=== PATIENT | female | born 1940 | race Caucasian/White ===

== ENCOUNTER → 2019-08-20 | Outpatient (CLI) | payer MEDICARE, OTHER ==
[2019-08-21 00:54] LABS: Hemoglobin A1C 5.6 % (4.0-6.0)
== END | disposition home or self-care (01) ==
LOC: LABWHC1 15:25
PROVIDERS: ATTEND Nurse Practitioner
DX: E11.9 Type 2 diabetes mellitus without complications (principal)
CPT/HCPCS: 36415; 83036

== ENCOUNTER → 2019-08-20 | Outpatient (CLI) | payer MEDICARE, OTHER ==
[2019-08-20 16:13] LABS: HGB 14.4 gm/dL (11.4-16.0); MCH 29.8 pg (25.0-35.0); MCHC 32.8 g/dL (31.0-37.0); MCV 90.9 fL (80.0-100.0); Mean Platelet Volume 7.5; Platelet Count 198 k/uL (150-450); RBC 4.84 m/uL (3.80-5.40); RDW 13.7 % (11.5-15.5); WBC 7.9 k/uL (3.8-10.6)
[2019-08-20 16:22] LABS: INR 0.9 (<1.2); Partial Thromboplastin Time 23.5 sec (22.0-30.0); Prothrombin Time 9.5 sec (9.0-12.0)
[2019-08-20 16:24] LABS: Appearance,Urine Clear (Clear); Bacteria,Urine Many /hpf; Bilirubin,Urine Negative (Negative); Blood,Urine Negative (Negative); Color,Urine Light Yellow; Glucose,Urine (UA) Negative (Negative); Ketones,Urine Negative (Negative); Leukocyte Esterase,Urine Small (Negative); Nitrite,Urine Negative (Negative); PH, Urine 5.5 (5.0-8.0); Protein,Urine Negative (Negative); Specific Gravity,Urine 1.006 (1.001-1.035); Squamous Epithelial Cell,Urine <1 /hpf (0-4); Urobilinogen,Urine <2.0 mg/dL (<2.0); WBC,Urine 8 /hpf (0-5)
[2019-08-20 16:30] LABS: Albumin 4.2 g/dL (3.5-5.0); Calcium 9.5 mg/dL (8.4-10.2); Potassium 4.6 mmol/L (3.5-5.1); Total Bilirubin 0.4 mg/dL (0.2-1.3); Total Protein 7.5 g/dL (6.3-8.2)
== END | disposition home or self-care (01) ==
LOC: LABPAT 15:21
PROVIDERS: ATTEND Orthopaedic Surgery Sports Medicine
DX: Z01.812 Encounter for preprocedural laboratory examination (principal); M17.11 Unilateral primary osteoarthritis, right knee
CPT/HCPCS: 80053; 81001; 85027; 85610; 85730; 87070

== ENCOUNTER 2019-08-26 10:49 | Day surgery (SDC) | payer MEDICARE, OTHER ==
[~2019-08-26 10:49] MED LIST: ACETAMINOPHEN TAB 500 MG TAB PO ONE; DEXAMETHASONE SOD PHOSPHATE 10 MG/ML 1 ML VIAL IV ONE; GABAPENTIN 300 MG CAP PO ONE; HYDROmorphone 0.5 MG/0.5 ML SYRINGE IVP PRN; LIDOCAINE 1% 20 ML VIAL (10MG/ML) FOR IV START INTRADERMA PRN; MELOXICAM 7.5 MG TAB PO ONE; MIDAZOLAM 2 MG/2 ML VIAL IV PRN; ONDANSETRON 4 MG/2 ML VIAL IVP ONE; ROPIVACAINE 246.25 MG, EPINEPHrine 0.5 MG, KETOROLAC 30 MG, cloNIDine HCL/PF 80 MCG, WA... MISCELLANE ONE; SCOPOLAMINE 1.5MG/72HR PATCH TRANSDERM ONE; TRANEXAMIC ACID 1,000 MG in SODIUM CHLORIDE 0.9% 100 ML IVPB ONE
[2019-08-26] MEDS: LACTATED RINGERS 1,000 ML IV SCH ×3 (11:26→15:16)
[2019-08-26 11:29] LABS: Glucose,Whole Blood 121 mg/dL (75-99)
[2019-08-26] MEDS ORDERED: TRANEXAMIC ACID 1,000 MG/10 ML VIAL ONE (12:40)
[2019-08-26] MEDS ORDERED: PROPOFOL 10 MG/ML 20 ML VIAL IV ONE (12:40)
[2019-08-26] MEDS ORDERED: SODIUM CHLORIDE 0.9% 100 ML BAG ONE (12:40)
[2019-08-26] MEDS ORDERED: MIDAZOLAM 2 MG/2 ML VIAL ONE (12:40)
[2019-08-26] MEDS ORDERED: KETAMINE 10 MG/ML 20 ML VIAL ONE (12:40)
[2019-08-26] MEDS ORDERED: fentaNYL (PF) 50 MCG/ML 2 ML AMP ONE (12:40)
[2019-08-26] MEDS ORDERED: MORPHINE SULFATE (PF) 0.3 MG/0.3 ML SYR ONE (12:40)
[2019-08-26] MEDS ORDERED: ONDANSETRON 4 MG/2 ML VIAL ONE (12:40)
[2019-08-26] MEDS ORDERED: ceFAZolin 3,000 MG in SODIUM CHLORIDE 0.9% IRRIGATIO 3,000 ML IRRIGATION ONE (12:45)
[2019-08-26] MEDS ORDERED: BISACODYL 10 MG SUPP RECTAL PRN (12:48)
[2019-08-26] MEDS ORDERED: traMADol 50 MG TAB PO PRN (12:48)
[2019-08-26] MEDS ORDERED: TEMAZEPAM 15 MG CAP PO PRN (12:48)
[2019-08-26] MEDS ORDERED: ONDANSETRON 4 MG/2 ML VIAL IVP PRN (12:48)
[2019-08-26] MEDS ORDERED: NALOXONE 0.4 MG/ML 1 ML VIAL IV PRN ×2 (12:48→15:26)
[2019-08-26] MEDS ORDERED: HYDROcodone/APAP 5-325MG 1 EACH TAB PO PRN (12:48)
[2019-08-26] MEDS ORDERED: HYDROmorphone 0.5 MG/0.5 ML SYRINGE IVP PRN ×4 (12:48→15:26)
[2019-08-26] MEDS ORDERED: HYDROcodone/APAP 10-325MG 1 EACH TAB PO PRN (12:48)
[2019-08-26] MEDS ORDERED: ACETAMINOPHEN TAB 325 MG TAB PO PRN (12:48)
[2019-08-26] MEDS ORDERED: DIAZEPAM 5 MG TAB PO PRN (12:48)
[2019-08-26] MEDS ORDERED: NA PHOS,M-B/NA PHOS,DI-BA 133 ML ENEMA RECTAL PRN (12:48)
[2019-08-26] MEDS ORDERED: MAGNESIUM HYDROXIDE 2,400 MG/10 ML CUP PO PRN (12:48)
[2019-08-26] MEDS ORDERED: LACTATED RINGERS 1,000 ML IV ONE (13:24)
[2019-08-26] MEDS ORDERED: diphenhydrAMINE 50 MG/ML 1 ML VIAL IVP ONE (14:44)
[2019-08-26 15:01] LABS: Glucose,Whole Blood 178 mg/dL (75-99)
[2019-08-26] MEDS ORDERED: PROMETHAZINE INJ 25 MG/ML 1 ML VIAL IVPB ONE (15:03)
--- NOTE | 2019-08-26 15:03 | OP ---
OPERATIVE REPORT DATE OF PROCEDURE: 08/26/2019 SURGEON: Lui Hubbard MD RECYCLE WORKER: Chai PEDRAZA. PREOPERATIVE DIAGNOSIS: Right knee osteoarthrosis. POSTOPERATIVE DIAGNOSIS: Right knee osteoarthrosis. OPERATION: Right total knee arthroplasty. ANESTHESIA: Spinal with sedation. ESTIMATED BLOOD LOSS: 100 mL. TOURNIQUET TIME: 47 minutes at 250 mmHg. COMPLICATIONS: None apparent. DRAINS: None. DISPOSITION: Postanesthesia care unit. INDICATIONS: Ronna is a very pleasant 78-year-old female with longstanding history of right knee pain. History and physical examination are consistent with advanced right knee osteoarthrosis. She has been through significant nonoperative management up to this point. Further treatment options were discussed and she has decided to go for the right total knee arthroplasty. The risks of procedure were discussed with her in detail. These risks include, but are not limited to, risk of infection, nerve damage, bleeding, pain, and a small risk of deep vein thrombosis which could lead to fatal pulmonary embolism. There is also risk of loosening the implant which could require revision operation. The patient understands these risks. All of her questions were answered to her satisfaction. Appropriate informed consent was obtained. DESCRIPTION OF PROCEDURE: Patient identified in the preoperative holding area. Surgical sites marked by both the patient and myself. She was given 2 g of Ancef IV for prophylactic purposes. She was then transferred to the operative suite. She was placed supine on the operative table. Spinal anesthetic was then administered and dosed per the Anesthesia Department without apparent complication. Examination under anesthesia was then performed. The patient was 5 to 10 degrees shy of full extension. She had 95 degrees of flexion in the medial collateral ligament and lateral collateral ligament. Posterior cruciate ligaments were stable. Tourniquet was then placed high on the right upper thigh, well-padded in preparation for surgery. The patient's right lower extremity was than prepped and draped in usual sterile fashion. Standard surgical pause undertaken to ensure that we were operating on the correct site and that appropriate preoperative antibiotics have been given. All staff in the room were in agreement. We proceeded. The outlines of the patellar were marked with surgical pen. A planned 12 cm vertical incision centered over the patella was marked with surgical pen. Leg was then exsanguinated with an Esmarch dressing. The knee was then flexed and tourniquet was inflated to 250 mmHg. The total tourniquet time for the procedure was 47 minutes. Incision was then made with a 10 blade scalpel. Dissection carried down sharply to overlying fascia. Great care was taken to minimize the skin flaps. The knee was then exposed using a standard medial parapatellar approach. A small cuff of quadriceps tendon was then left for suturing. She was in a bit of varus preoperatively. A standard medial release was then made. Superficial medial collateral ligament dissected off the bone around the posterior aspect of the proximal tibia. The medial meniscus was then excised as well. The lateral meniscus was also released anteriorly. The leg was then externally rotated. The patella was everted. The knee was flexed, the retractor was then placed to protect the collateral ligaments. I then proceeded to remove the infrapatellar fat pad. This was excised sharply, tangentially with the fibers of the patellar tendon. I then proceeded to remove peripheral osteophytes. This was done with a rongeur. I then proceeded with the distal femoral resection. She did have near full extension. A planned 9 mm resection was then done. The femoral canal was then entered in midline of the femur approximately 10 mm anterior to the origin of the posterior cruciate ligament. The steven was then advanced down the center of the femur and placed intramedullary. Based on preoperative radiographs, the angle between the anatomic and mechanical axis of the femur was approximately 4-5 degrees. The valgus angle of the distal femoral cutting guide was then set at 5 degrees for the right knee. The distal femoral cutting guide was then advanced over the intramedullary steven. This was seated firmly against the femur. I then as mentioned planned to take 9 mm off the distal femur. The cutting block was then secured onto the femur with pins. The jig was removed. The distal femoral cut was made through the slot of the block. The pins were then removed, this femoral cutting block was removed. The accuracy of the distal femoral cuts was checked with 2 flat bars. I then proceed to femoral sizing. Posterior referencing sizing guide was held firmly against the resected distal surface of the femur. Posterior condyles were resting on the posterior plane of the guide. Sizing stylus was then placed onto the anterior femur. The size was measured to a size 4. I then assessed for femoral rotation. The plan was for 3 degrees of external rotation. Three degrees of external rotation was placed onto the jig. These holes were then marked. I then confirmed the rotation by 3 separate methods. This was done using epicondylar axis as well as Whitesides line and posterior referencing. It was deemed that the external rotation was proper. I then went forward with placing the femoral cutting block. This was placed over the previously placed pin holes. The [place] wing was then placed on the anterior slots to ensure that we would not notch the anterior femur with the anterior femoral cut. I then proceed with the anterior femoral cut. This was flush with the anterior cortex of the femur. Posterior cuts were then made followed by the anterior chamfer cut, then the posterior chamfer cut. The cutting block was then removed. Throughout the resection, the collateral ligaments were protected with retractors. I then placed a trial size 4 femur. It fit slightly wide mediolateral but the narrow fit very nicely and it fit flush with the distal end of the femur. The drill holes were then made. I then proceeded with the tibial cut. I planned for cruciate retaining knee. The guide was placed and set for varus valgus and for slope. The height was set for approximate 2 mm resection from the medial tibial plateau which was the lower side. I was happy with the alignment and the amount of resection. The cutting block was then pinned to the proximal tibia. The alignment steven was removed and the proximal tibia was resected with a reciprocating saw. Again this was done with retractors protecting the collateral ligaments as well as the posterior cruciate ligament. I then proceeded to evaluate the flexion and extension gaps. A 10 mm block was then placed. The flexion-extension gaps were equal. I then proceeded with the resection of the posterior osteophytes. She had very extensive posterior osteophytes. This is done using a curved osteotome. This resected the posterior osteophytes and posterior capsule stripping was also done off the posterior aspect of the femur at this time. The osteophytes were then removed. I then proceeded to resection of patella. The thickness of patella was measured using the caliper. The thickness was 22 mm. The thickness of the anticipated patellar dome was then taken into account. The resection was then performed and confirmed to be equal in 4 quadrants using a caliper. Approximately 14 mm of bone remained after the resection. A 29 x 8 standard patellar trial was then placed. The holes were drilled and the trial was then placed. I then proceeded with sizing the tibial plate. A size 3 tibial plate fit very nicely. I then placed the trial femur the tibial tray and patellar button. A 9 mm trial tibial insert was also placed. The components fit very nicely. She had full extension and flexion. The extension and flexion gaps were equal and stable to both varus and valgus stress. The patella tracked appropriately. The tibial tray rotation was then marked with a Bovie. This was externally rotated properly. I then proceed with tibial preparation. I first drilled the femoral holes and removed femoral component. The tibial tray was then set for proper external rotation as well as mediolateral placement onto the tibia. It was then pinned into place. I then proceed with punching the keel. I then decided to proceed with cementing of all of her components. The knee was thoroughly irrigated with sterile saline solution via pulse lavage. The lateral geniculate artery was identified and cauterized. All blood was removed from the bone of the tibia, femur, and patella with pulse lavaged. I then proceeded with cementing. Two packs of antibiotic bone cement prepared on the back table by the auto electrical technician. I then proceed with cementing the tibia first. The cement was impacted in the keel as well as deeply seated in the bone. A second coat of cement was then placed. The tibia was then impacted into place. Excess cement was removed with Nelly's and Joker's. I then proceed with cementing the femoral component. The femoral component was also cemented using standard technique. Excess cement was removed. A 10 mm trial insert was then placed into the knee. He is brought in full extension with a constant axial load placed until the cement had hardened. The patellar component was then cemented. This held firmly with a compressive device until the cement had dried. When the cement had dried, the knee was taken out of extension. All excess cement was removed from around the prosthesis. I then trialed the knee with a 9 mm insert. Flexion and extension gaps were appropriate. The knee was stable. I decided to go for the 9 mm cross-linked cruciate-retaining tibial insert. Polyethylene was then placed onto the tibial tray and locked into place. The knee was then reduced. The knee was again further irrigated with sterile saline solution with antibiotic added. The tourniquet was then deflated. The total tourniquet time for the procedure was 47 minutes at 250 mmHg. Final components were a [employer] Oxinium size 4 narrow cruciate-retaining femoral component, a size 3 tibial tray, a 9 mm cruciate-retaining polyethylene insert and a 29 x 8 patella. I then proceeded with closure. Again, the knee was thoroughly irrigated. The quadriceps tendon and the medial retinaculum were reapproximated with a #2 Ethibond suture. The extensor mechanism was then closed with a running #2 Quill suture. Subcutaneous tissues were closed with 2-0 Vicryl interrupted suture. The skin was closed with a running 3-0 Quill suture. Dermabond was applied to the incision. Sterile compressive dressing was then applied. All sponge and needle counts were deemed correct prior to closure. The patient tolerated the procedure without apparent complication. She was transferred to recovery room in stable condition. MMODL / IJN: [id number] /
--- NOTE | 2019-08-26 15:17 | XR ---
EXAMINATION TYPE: XR knee limited RT DATE OF EXAM: 08/26/2019 COMPARISON: None HISTORY: Postop knee replacement TECHNIQUE: 2 view right knee FINDINGS: Tibial and femoral components of in place. Soft tissue postsurgical changes are evident. No acute fractures or dislocations are evident. IMPRESSION: 1. No acute fracture post knee replacement
[2019-08-26] MEDS ORDERED: NALBUPHINE 10 MG/ML (1 ML AMP) IV PRN (15:26)
[2019-08-26 16:44] VITALS: BMI 35.9
[2019-08-26 17:26] LABS: Glucose,Whole Blood 196 mg/dL (75-99)
[2019-08-26] MEDS: INSULIN ASPART (NovoLOG) 100 UNIT/ML VIAL SQ SCH ×2 (17:44→20:22)
--- NOTE | 2019-08-26 19:01 | P.CONS ---
History of Present Illness - Reason for Consult Consult date: 08/26/19 Medical management Requesting physician: Lui Hubbard - Chief Complaint Right knee surgery - History of Present Illness Consultation: This is a pleasant [address] Chan. Today underwent right total knee arthroplasty per Dr. Lui Hubbard. Postprocedure patient is controlled. Slight nauseous present. No vomiting. No chest pain no shortness breath. Propped up in bed. Chronic stable medical conditions include diabetes, hypertension, hyperlipidemia, osteoarthritis status post of left hip and knee. Has obstructive sleep apnea and hypothyroid. Review of systems: GEN.: Tired EYES: None HEENT: None NECK: None RESPIRATORY: None CARDIOVASCULAR: None GASTROINTESTINAL: None GENITOURINARY: None MUSCULOSKELETAL: Joint pains LYMPHATICS: None HEMATOLOGICAL: None PSYCHIATRY: None NEUROLOGICAL: None Social history: . Does not smoke or drink alcohol. Physical examination: VITAL SIGNS: 97.2, 49, 16, 128/72, 95% on 3 L GENERAL: BMI 35.8, propped up in bed, awake. EYES: Pupils equal. Conjunctiva normal. HEENT: External appearance of nose and ears normal, oral cavity grossly normal. NECK: JVD not raised; masses not palpable. HEART: First and second heart sounds are normal; no edema. LUNGS: Respiratory rate normal; clear to auscultation. ABDOMEN: Soft, nontender, liver spleen not palpable, no masses palpable. PSYCH: Alert and oriented x3; mood and affect normal. NEUROLOGICAL: Cranial nerves grossly intact; no facial asymmetry, power and sensation grossly intact. LYMPHATICS: No lymph nodes palpable in the axilla and neck MUSCULOSKELETAL: Dressing over the right knee, evidence of OA especially in the hands INVESTIGATIONS, reviewed in the clinical context: Labs from 08/20/2019 include- White count 7.9 hemoglobin 14.4 platelets 198 bun 22 crit 1.25 Assessment: Right total knee arthroplasty -Primary osteoarthritis -Obesity BMI 35.8 -Diabetes mellitus type 2 on oral hypoglycemic -Hyperlipidemia -Essential hypertension -Obstructive sleep apnea uses CPAP Plan: Home medications resumed. Accu-Cheks will be followed. Patient is on aspirin 325 mg twice a day for DT prophylaxis Dr. Alexander. Patient on nausea medication. Care was discussed with the patient. Questions were answered. Thank you Dr. Hubbard Past Medical History Past Medical History: Diabetes Mellitus, Hyperlipidemia, Hypertension, Osteoarthritis (OA), Sleep Apnea/CPAP/BIPAP, Thyroid Disorder History of Any Multi-Drug Resistant Organisms: None Reported Past Surgical History: Breast Surgery, Orthopedic Surgery Additional Past Surgical History / Comment(s): miroslava breast bx, rt knee arthroscopy, partial thyroidectomy Past Anesthesia/Blood Transfusion Reactions: Postoperative Nausea & Vomiting (PONV) Past Psychological History: No Psychological Hx Reported Smoking Status: Never smoker Past Alcohol Use History: None Reported Past Drug Use History: None Reported - Past Family History Mother Family Medical History: Deep Vein Thrombosis (DVT) Medications and Allergies Home Medications Medication Instructions Recorded Confirmed Type Acetaminophen [Tylenol] 325 mg PO Q4H PRN 08/21/19 08/26/19 History Aspirin [Adult Low Dose Aspirin EC] 81 mg PO DAILY 08/21/19 08/26/19 History Bisoprolol-Hctz 5-6.25 mg [Ziac 1 tab PO QAM 08/21/19 08/26/19 History 5-6.25 MG] Calcium Carbonate/Vitamin D3 1 each PO DAILY 08/21/19 08/26/19 History [Calcium 500-Vit D3 600 Tablet] Furosemide [Lasix] 20 mg PO Q48H 08/21/19 08/26/19 History Losartan Potassium 100 mg PO QAM 08/21/19 08/26/19 History Multivit-Min/Iron/Folic/Lutein 1 each PO DAILY 08/21/19 08/26/19 History [Centrum Silver Women Tablet] Simvastatin 40 mg PO DAILY 08/21/19 08/26/19 History glipiZIDE [Glucotrol] 2.5 mg PO AC-BRKFST 08/21/19 08/26/19 History Allergies Allergy/AdvReac Type Severity Reaction Status Date / Time nickel Allergy Rash/Hives/ Verified 08/26/19 11:06 itching Physical Exam Vitals: Vital Signs Temp Pulse Pulse Resp BP Pulse Ox 08/26/19 18:27 48 L 112/67 08/26/19 17:41 14 96 08/26/19 17:30 47 L 109/68 08/26/19 17:15 45 L 115/68 93 L 08/26/19 17:00 48 L 114/66 93 L 08/26/19 16:45 50 L 126/72 92 L 08/26/19 16:30 51 L 114/71 96 08/26/19 16:15 48 L 124/74 95 10/23/19 16:00 50 L 131/75 95 08/26/19 15:45 48 L 129/74 94 L 08/26/19 15:30 97.2 F L 49 L 128/72 95 08/26/19 15:26 15 96 08/26/19 15:22 50 L 16 111/60 94 L 08/26/19 15:09 51 L 16 117/60 94 L 08/26/19 14:54 54 L 16 119/63 97 08/26/19 14:39 97 F L 57 L 14 140/58 94 L 08/26/19 11:10 98.8 F 63 16 161/76 94 L Intake and Output 08/26/19 08/26/19 08/26/19 06:59 14:59 22:59 Intake Total 2050 400 Output Total 100 Balance 1950 400 Intake: IV 2050 400 Output: Estimated Blood Loss 100 Results Labs: Abnormal Lab Results - Last 24 Hours (Table) 08/26/19 08/26/19 08/26/19 Range/Units 11:26 14:59 17:24 POC Glucose (mg/dL) 121 H 178 H 196 H (75-99) mg/dL
[2019-08-26 20:17] LABS: Glucose,Whole Blood 196 mg/dL (75-99)
[2019-08-26] MEDS: ASPIRIN 325 MG TAB PO SCH (20:22)
[2019-08-26] MEDS ORDERED: SENNOSIDES-DOCUSATE SODIUM 1 EACH TAB PO SCH (21:00)
[2019-08-27] MEDS: LACTATED RINGERS 1,000 ML IV SCH ×2 (02:00→05:01)
[2019-08-27 06:45] LABS: Glucose,Whole Blood 134 mg/dL (75-99)
--- NOTE | 2019-08-27 08:00 | P.PN ---
Progress Note - Text Progress Note Date: 08/27/19 78-year-old female status post right total knee arthroplasty. Status post Duramorph spinal. Patient doing well ambulating, no pruritus. VAS between a 2- 4 out of 10 in severity. Patient likely discharged today.
[2019-08-27 08:02] LABS: Basophils % (A) 0 %; Eosinophils % (A) 0 %; HGB 12.7 gm/dL (11.4-16.0); Lymphocytes # (A) 1.1 k/uL (1.0-4.8); Lymphocytes % (A) 7 %; MCH 30.3 pg (25.0-35.0); MCHC 32.6 g/dL (31.0-37.0); MCV 92.8 fL (80.0-100.0); Mean Platelet Volume 6.5; Monocytes # (A) 0.7 k/uL (0-1.0); Monocytes % (A) 4 %; Neutrophils # (A) 14.6 k/uL (1.3-7.7); Neutrophils % (A) 89 %; Platelet Count 207 k/uL (150-450); RDW 13.7 % (11.5-15.5); WBC 16.6 k/uL (3.8-10.6)
[2019-08-27] MEDS: INSULIN ASPART (NovoLOG) 100 UNIT/ML VIAL SQ SCH ×2 (08:21→12:18)
[2019-08-27] MEDS: ASPIRIN 325 MG TAB PO SCH (08:24)
[2019-08-27] MEDS ORDERED: BISOPROLOL-HCTZ 5-6.25 MG 1 EACH TAB PO SCH (09:00)
[2019-08-27] MEDS ORDERED: LOSARTAN 50 MG TAB PO SCH (09:00)
[2019-08-27] MEDS ORDERED: ATORVASTATIN 20 MG TAB PO SCH (09:00)
--- NOTE | 2019-08-27 10:22 | P.DS ---
Providers Expected date of discharge: 08/27/19 Attending physician: Lui Hubbard Consults: 08/26/19 12:48 Consult Physician Routine Consulting Provider: Arron Whalen Consult Reason/Comments: post op medical management Do you want consulting provider notified?: Yes Primary care physician: Immanuel Chan - Discharge Diagnosis(es) (1) Osteoarthritis of right knee Patient was admitted to the OR on 08/27/2019 to undergo a right total knee arthroplasty. She had failed conservative measures as an outpatient and desired to proceed with elective surgery after given informed consent. She underwent the above procedure which she tolerated well without complication. Postoperative hospital course has remained without complication. On day of discharge she is afebrile, vital signs stable, labs within acceptable ranges, tolerating by mouth meds and diet, voiding without difficulty, positive flatus, denies abdominal pain or calf pain, pain is controlled on oral pain medication and has no new complaints. Wound is benign, neurovascular status is intact, calf is soft and nontender, abdomen soft and nontender. Review of systems is negative for numbness, tingling, fever, chills, chest pain, shortness of breath, nausea, vomiting, dizziness, headaches, slurred speech or other. Current Visit: Yes Status: Acute Priority: Medium Procedures: Right TKA Patient Condition at Discharge: Good Plan - Discharge Summary Discharge Rx Participant: Yes New Discharge Prescriptions: New Aspirin 325 mg PO BID #60 tab Docusate [Colace] 100 mg PO BID #60 capsule HYDROcodone/APAP 7.5-325MG [[place] 7.5-325] 1 - 2 each PO Q6HR PRN #56 tab PRN Reason: Pain No Action glipiZIDE [Glucotrol] 2.5 mg PO AC-BRKFST Bisoprolol-Hctz 5-6.25 mg [Ziac 5-6.25 MG] 1 tab PO QAM Simvastatin 40 mg PO DAILY Multivit-Min/Iron/Folic/Lutein [Centrum Silver Women Tablet] 1 each PO DAILY Losartan Potassium 100 mg PO QAM Furosemide [Lasix] 20 mg PO Q48H Calcium Carbonate/Vitamin D3 [Calcium 500-Vit D3 600 Tablet] 1 each PO DAILY Aspirin [Adult Low Dose Aspirin EC] 81 mg PO DAILY Acetaminophen [Tylenol] 325 mg PO Q4H PRN PRN Reason: Pain Discharge Medication List Acetaminophen [Tylenol] 325 mg PO Q4H PRN 10/18/19 [History] Aspirin [Adult Low Dose Aspirin EC] 81 mg PO DAILY 08/21/19 [History] Bisoprolol-Hctz 5-6.25 mg [Ziac 5-6.25 MG] 1 tab PO QAM 08/21/19 [History] Calcium Carbonate/Vitamin D3 [Calcium 500-Vit D3 600 Tablet] 1 each PO DAILY 08/21/19 [History] Furosemide [Lasix] 20 mg PO Q48H 08/21/19 [History] Losartan Potassium 100 mg PO QAM 08/21/19 [History] Multivit-Min/Iron/Folic/Lutein [Centrum Silver Women Tablet] 1 each PO DAILY 08/21/19 [History] Simvastatin 40 mg PO DAILY 08/21/19 [History] glipiZIDE [Glucotrol] 2.5 mg PO AC-BRKFST 08/21/19 [History] Aspirin 325 mg PO BID #60 tab 08/27/19 [Rx] Docusate [Colace] 100 mg PO BID #60 capsule 08/27/19 [Rx] HYDROcodone/APAP 7.5-325MG [[place] 7.5-325] 1 - 2 each PO Q6HR PRN #56 tab 08/27/19 [Rx] Follow up Appointment(s)/Referral(s): Lui Hubbard MD [STAFF PHYSICIAN] - 10 Days [facility] Visiting Nurse, [NON-STAFF] - As Needed Activity/Diet/Wound Care/Special Instructions: Keep wound clean and dry Take meds as directed Follow-up with Dr. Hubbard in office Weight bear as tolerated May shower in 3 days if no bleeding Discharge Disposition: HOME WITH HOME HEALTH SERVICES
[2019-08-27] MEDS ORDERED: MULTIVITAMINS, THERA 1 EACH TAB PO SCH (12:00)
[2019-08-27 12:11] LABS: Glucose,Whole Blood 68 mg/dL (75-99)
[2019-08-27 12:22] LABS: Glucose,Whole Blood 73 mg/dL (75-99)
[2019-08-27 14:12] VITALS: BP 130/76; PULSE 62; RESP 18; TEMP 98.5
--- NOTE | 2019-08-27 21:00 | P.PN ---
Progress Note - Text Progress Note Date: 08/27/19 Consultation: This is a pleasant [address] Chan. Today underwent right total knee arthroplasty per Dr. Lui Hubbard. Postprocedure patient is controlled. Slight nauseous present. No vomiting. No chest pain no shortness breath. Propped up in bed. Chronic stable medical conditions include diabetes, hypertension, hyperlipidemia, osteoarthritis status post of left hip and knee. Has obstructive sleep apnea and hypothyroid. Today-feeling well. Some pain present. Did work with therapy. No new issues. Did tolerate her meals. Review of systems: Was done for constitutional, cardiovascular, GI, pulmonary. Musculoskeletal, relevant finding as above Current medications reviewed from today's electronic records Physical examination: VITAL SIGNS: 97.9, 55, 16, 121/68, 94% room air GENERAL: Sitting up comfortable EYES: Pupils equal. Conjunctiva normal. HEENT: External appearance of nose and ears normal, oral cavity grossly normal. NECK: JVD not raised; masses not palpable. HEART: First and second heart sounds are normal; no edema. LUNGS: Respiratory rate normal; clear to auscultation. ABDOMEN: Soft, nontender, liver spleen not palpable, no masses palpable. PSYCH: Alert and oriented x3; mood and affect normal. MUSCULOSKELETAL: Dressing over the right knee, evidence of OA especially in the hands INVESTIGATIONS, reviewed in the clinical context: White count 16.6 hemoglobin 12.7 Labs from 08/20/2019 include- White count 7.9 hemoglobin 14.4 platelets 198 bun 22 crit 1.25 Assessment: -Right total knee arthroplasty -Primary osteoarthritis -Obesity BMI 35.8 -Diabetes mellitus type 2 on oral hypoglycemic -Hyperlipidemia -Essential hypertension -Obstructive sleep apnea uses CPAP -Leukocytosis likely reactive from surgery. No clinical evidence of infection Plan: Home medications resumed. Accu-Cheks will be followed. Patient is on aspirin 325 mg twice a day for DT prophylaxis Dr. Alexander. Patient on nausea medication. Care was discussed with the patient. Questions were answered. Late in the day. Did call the issue at home and told her to hold off the Glucotrol. Total to check her sugar twice a day. What she has to Accu-Cheks above 120 she can resume her Glucotrol. Thank you Dr. Hubbard
== END 2019-08-27 13:20 | disposition home health service (06) ==
LOC: OR 10:49 → 4SSUR 14:40 → OR 08-27 13:20
PROVIDERS: ATTEND Orthopaedic Surgery Sports Medicine
DX: M17.11 Unilateral primary osteoarthritis, right knee (principal); I10 Essential (primary) hypertension; E78.5 Hyperlipidemia, unspecified; E11.9 Type 2 diabetes mellitus without complications; E89.0 Postprocedural hypothyroidism; E66.9 Obesity, unspecified; Z68.35 Body mass index [BMI] 35.0-35.9, adult; E78.00 Pure hypercholesterolemia, unspecified; E55.9 Vitamin D deficiency, unspecified; G47.33 Obstructive sleep apnea (adult) (pediatric); Z99.89 Dependence on other enabling machines and devices; Z82.49 Family history of ischemic heart disease and other diseases of the circulatory system; Z84.89 Family history of other specified conditions; Z97.3 Presence of spectacles and contact lenses; Z79.84 Long term (current) use of oral hypoglycemic drugs; Z79.82 Long term (current) use of aspirin; Z79.899 Other long term (current) drug therapy; Z91.048 Other nonmedicinal substance allergy status; Z88.8 Allergy status to other drugs, medicaments and biological substances; E05.90 Thyrotoxicosis, unspecified without thyrotoxic crisis or storm; M25.761 Osteophyte, right knee; D72.829 Elevated white blood cell count, unspecified
CPT/HCPCS: 97162; 85025; 88300; 73560; 27447; C1776; C1713; J2250; J0171; J1200; J1100; J2550; J0690 ×3; J2405; J2274; J3010; J1885; J2795; J2704; J0735

== ENCOUNTER → 2021-10-10 | Outpatient (CLI) | payer MEDICARE, OTHER ==
[2021-10-10 13:56] LABS: HCT 50.8 % (34.0-46.0); HGB 16.7 gm/dL (11.4-16.0); MCH 30.3 pg (25.0-35.0); MCHC 32.8 g/dL (31.0-37.0); MCV 92.5 fL (80.0-100.0); Mean Platelet Volume 7.7; Platelet Count 249 k/uL (150-450); RBC 5.49 m/uL (3.80-5.40); RDW 13.4 % (11.5-15.5); WBC 9.8 k/uL (3.8-10.6)
[2021-10-10 14:05] LABS: Albumin 4.5 g/dL (3.5-5.0); Calcium 9.9 mg/dL (8.4-10.2); Potassium 4.6 mmol/L (3.5-5.1); Prothrombin Time 10.5 sec (9.0-12.0); Total Bilirubin 0.5 mg/dL (0.2-1.3); Total Protein 7.9 g/dL (6.3-8.2)
[2021-10-10 14:06] LABS: Partial Thromboplastin Time 25.8 sec (22.0-30.0)
[2021-10-10 14:33] LABS: Appearance,Urine Cloudy (Clear); Bacteria,Urine Rare /hpf; Bilirubin,Urine Negative (Negative); Blood,Urine Negative (Negative); Color,Urine Yellow; Glucose,Urine (UA) Negative (Negative); Hyaline Casts,Urine 7 /lpf (0-2); Ketones,Urine Negative (Negative); Leukocyte Esterase,Urine Negative (Negative); Mucus,Urine Moderate /hpf; Nitrite,Urine Negative (Negative); PH, Urine 5.5 (5.0-8.0); Protein,Urine Trace (Negative); RBC,Urine 1 /hpf (0-5); Specific Gravity,Urine 1.025 (1.001-1.035); Squamous Epithelial Cell,Urine 12 /hpf (0-4); WBC,Urine 2 /hpf (0-5)
== END | disposition home or self-care (01) ==
LOC: LABPAT 12:33
PROVIDERS: ATTEND Orthopaedic Surgery
DX: Z01.812 Encounter for preprocedural laboratory examination (principal); Z79.01 Long term (current) use of anticoagulants
CPT/HCPCS: 36415; 80053; 81001; 85027; 85610; 85730; 87070

== ENCOUNTER 2021-10-17 12:21 | Day surgery (SDC) | payer MEDICARE, OTHER ==
[2021-10-13 11:44] VITALS: BMI 35.4
[~2021-10-17 12:21] MED LIST changes: -ACETAMINOPHEN TAB 500 MG TAB PO ONE; +ACETAMINOPHEN TAB 500 MG TAB PO PRN; -DEXAMETHASONE SOD PHOSPHATE 10 MG/ML 1 ML VIAL IV ONE; +DEXAMETHASONE SOD PHOSPHATE 4 MG/ML 1 ML VIAL IV ONE; -GABAPENTIN 300 MG CAP PO ONE; +GABAPENTIN 300 MG CAP PO PRN; +HYDROcodone/APAP 7.5-325MG 1 EACH TAB PO PRN; +HYDROmorphone 0.2 MG/1 ML SYRINGE IVP PRN; -LIDOCAINE 1% 20 ML VIAL (10MG/ML) FOR IV START INTRADERMA PRN; +MAGNESIUM HYDROXIDE 2,400 MG/10 ML CUP PO PRN; -MELOXICAM 7.5 MG TAB PO ONE; +MELOXICAM 7.5 MG TAB PO PRN; -MIDAZOLAM 2 MG/2 ML VIAL IV PRN; +NALOXONE 0.4 MG/ML 1 ML VIAL IV PRN; +ONDANSETRON 4 MG/2 ML VIAL IVP PRN; -ROPIVACAINE 246.25 MG, EPINEPHrine 0.5 MG, KETOROLAC 30 MG, cloNIDine HCL/PF 80 MCG, WA... MISCELLANE ONE; -SCOPOLAMINE 1.5MG/72HR PATCH TRANSDERM ONE; -TRANEXAMIC ACID 1,000 MG in SODIUM CHLORIDE 0.9% 100 ML IVPB ONE; +TRANEXAMIC ACID 1,000 MG in SODIUM CHLORIDE 0.9% 100 ML IVPB PRN
[2021-10-17 13:35] LABS: Glucose,Whole Blood 128 mg/dL (75-99)
[2021-10-17] MEDS ORDERED: MIDAZOLAM 2 MG/2 ML VIAL IVP ONE (13:36)
[2021-10-17] MEDS: LACTATED RINGERS 1,000 ML IV SCH ×2 (13:37→20:44)
[2021-10-17] MEDS ORDERED: LIDOCAINE 1% INJ 10MG/ML (20 ML MDV) ONE (13:45)
[2021-10-17] MEDS ORDERED: MIDAZOLAM 2 MG/2 ML VIAL ONE (13:45)
[2021-10-17] MEDS ORDERED: HEPARIN SODIUM,PORCINE 10,000 UNIT/ML 1 ML VIAL ONE (13:45)
[2021-10-17] MEDS ORDERED: ePHEDrine 50 MG/ML 1 ML AMP ONE (13:45)
[2021-10-17] MEDS ORDERED: TRANEXAMIC ACID 1,000 MG/10 ML VIAL ONE (13:45)
[2021-10-17] MEDS ORDERED: diphenhydrAMINE 50 MG/ML 1 ML VIAL ONE (13:45)
[2021-10-17] MEDS ORDERED: SODIUM CHLORIDE 0.9% 100 ML BAG ONE (13:45)
[2021-10-17] MEDS ORDERED: SODIUM CHLORIDE 0.9% IRRIG 1,000 ML BTL IRRIGATION ONE (13:45)
[2021-10-17] MEDS ORDERED: PROPOFOL 10 MG/ML 20 ML VIAL IV ONE (13:45)
[2021-10-17] MEDS ORDERED: ceFAZolin 1,000 MG in SODIUM CHLORIDE 0.9% 1,000 ML IRRIGATION ONE (13:49)
[2021-10-17] MEDS ORDERED: ROPIVACAINE 5 MG/ML 30 ML VIAL MISCELLANE ONE ×2 (14:14→14:58)
[2021-10-17] MEDS ORDERED: LACTATED RINGERS 1,000 ML IV ONE (14:51)
--- NOTE | 2021-10-17 15:07 | P.OP ---
Date of Procedure: 10/17/21 Preoperative Diagnosis: Severe osteoarthritis right hip Postoperative Diagnosis: Severe osteoarthritis right hip Procedure(s) Performed: Right total hip arthroplasty with a direct anterior approach Implants: [employer] Polarstem standard size 0 [employer] R3, 3 hole hemispherical acetabular shell, 48 mm [employer] Reflection 6.5 mm cancellus screw, 20 mm 2 [employer] R3, XLPE 20 acetabular liner [employer] Oxinium femoral head 32 m, +0 All components were press-fit. The articulation is Oxinium on polyethylene. Anesthesia: spinal Surgeon: Cristopher Pacheco Nut Threader #1: Bernadette Burt Estimated Blood Loss (ml): 100 Pathology: other (Femoral head) Condition: stable Disposition: PACU Indications for Procedure: After failure of conservative treatment we discussed the surgical and nonsurgic al treatment options at length. Patient wishes to proceed with a total hip arthroplasty with a direct anterior approach. Complications specific to this procedure were discussed at length, including but not limited to infection, leg length discrepancy, dislocation, nerve injury, and fracture. Covid-19 was also discussed at length with the patient, and they are aware of the current policies and procedures. The patient was given the option of delaying surgery, but they elect to proceed knowing these risks. Patient is aware of all these complications and informed consent was obtained Operative Findings: The operative findings are consistent with severe osteoarthritis of the right hip Description of Procedure: Patient was seen and evaluated in the preoperative area and the consent was reviewed. The operative site was marked with a skin marker. The patient was then brought to the operating room and given preoperative antibiotics intravenously. 1 g of Tranexamic acid was also given intravenously. A spinal anesthetic was administered by the anesthesia department. The patient was then placed on the [place] table with the bony prominences well-padded. The hip area was then prepped with a ChloraPrep solution and draped in the usual sterile fashion. A universal timeout was then performed, which confirmed the patient's name, surgical site, ALLERGIES, and procedure being performed on the consent. Next the incision site was located at 1 cm distal and 2 cm lateral to the anterior superior iliac spine. The skin and subcutaneous tissues were sharply incised. Incision was carefully dissected down to the fascia overlying the tensor fascia anderson muscle. This fascia was then incised in line with the incision. Care was taken to stay laterally in order to avoid injuring the lateral femoral cutaneous nerve. Next, using blunt finger dissection, the tensor fascia anderson muscle was dissected off its investing fascia. The muscle was then carefully retracted laterally with a cobra retractor over the lateral neck of the femur. Next, the circumflex vessels were identified and cauterized using the AquaMantis device. The anterior hip capsule was then exposed. The capsule was then opened and an inverted T fashion. Cobra retractors were then placed intracapsularly. The retractors were maintained intracapsular throughout the procedure. The proximal femur was then visualized. Fluoroscopic x-rays were then taken in order to evaluate the preoperative leg lengths. A small amount of traction was placed on the leg. The femoral neck was then osteotomized appropriate level above the lesser trochanter. A small wedge of bone was then removed from the remaining femoral head. Next, using a corkscrew the femoral head was removed from the acetabulum. On gross visual inspection, the femoral head had complete loss of articular cartilage and multiple periarticular osteophytes. The femoral head was then measured. Attention was then turned to the acetabulum. The acetabulum was exposed and any remaining labrum was excised. Sequential reaming of the acetabulum was performed using fluoroscopic guidance until there was a good bed of bleeding cancellus bone. When the appropriate size was reached, a trial was then placed. The position and fit of the trial was checked with fluoroscopy. The trial was then removed. Then, using fluoroscopic guidance, the final implant was impacted at 20 of anteversion and 40 of abduction, and fully seated in the acetabulum. 2 screws were then placed in the acetabulum. Again fluoroscopy was used to check position of the screws. Next, the liner was then impacted, with a 20 elevated liner located in the anterior superior quadrant. Component locking was confirmed. Attention was then directed to the femur. With the aid of the [place] table, the femur was externally rotated to approximately 130, extended, and adducted under the opposite leg. A side hook was then placed under the proximal femur, and the side hook elevator was used to elevate the proximal femur while releasing the capsule. Retractors were then placed. A capsular release was performed, as well as a release of the conjoined tendon, which afforded excellent visualization of the proximal femur. Next, a box osteotome was used to lateralize the proximal femur. A spinner hand was then used to locate the femoral canal. Sequential broaching was then performed with appropriate size which afforded excellent fixation in the proximal femur. A trial was then placed with appropriate head and neck, and the hip was gently reduced with the aid of the [place] table. Fluoroscopy was then used to check position of the components, as well as to ensure equal leg lengths. The hip was then gently dislocated and the trials were then removed. Final implants were then impacted and the hip was again reduced. Final fluoroscopic x-rays confirmed that the components were in anatomic position, as well as equal leg lengths. The hip was also taken through range of motion, and found to be stable. The hip was then copiously irrigated with antibiotic solution with pulsatile lavage. The hip was then irrigated with Irrisept solution. The soft tissues were then injected with 60 cc of ,05% ropivacaine. A second dose of 1 g of Tranexamic acid was also given intravenously. Any blood collected by [employer] was then returned to the patient at this time. The fascia was then closed with 2-0 strata fix suture. The subcutaneous tissue was closed with 3-0 Vicryl. The subcuticular tissue was closed with 3-0 strata fix suture. The skin was then closed with Exofin skin glue. After the glue and dried, and Optifoam silver impregnated dressing was applied. The patient was then transferred to the recovery room in stable condition. The residential assistant ROCAEL Carlisle was required due to the complexity of surgery, and the need for skilled temporary office assistant for positioning, draping, exposure, retraction, and closure of the wound.
--- NOTE | 2021-10-17 15:38 | FL ---
Fluoroscopy HISTORY: Right anterior hip replacement 37 seconds fluoroscopy time supplied to the referring clinician. 3 intraoperative C-arm images docum ent the procedure. See dictated report from orthopedic surgery.
[2021-10-17 15:50] LABS: Glucose,Whole Blood 128 mg/dL (75-99)
--- NOTE | 2021-10-17 16:01 | XR ---
EXAMINATION TYPE: XR Hip Limited RT DATE OF EXAM: 10/17/2021 Comparison: None Clinical History: 80-year-old female Status post hip surgery, assess surgical alignment Findings: Image shows placement of right hip total arthroplasty. Both acetabular cup and femoral stem component s of prosthesis are well seated without periprosthetic fracture. Alignment grossly anatomic. There is soft tissue air relating to recent operation. Impression: Uncomplicated postoperative appearance right hip total arthroplasty.
[2021-10-17 17:36] LABS: Glucose,Whole Blood 170 mg/dL (75-99)
[2021-10-17] MEDS: SODIUM CHLORIDE 0.9% 1,000 ML IV SCH ×2 (17:56→23:27)
[2021-10-17] MEDS: HYDROcodone/APAP 7.5-325MG 1 EACH TAB PO PRN (20:43)
[2021-10-17] MEDS ORDERED: SENNOSIDES-DOCUSATE SODIUM 1 EACH TAB PO SCH (21:00)
[2021-10-17 21:16] LABS: Glucose,Whole Blood 270 mg/dL (75-99)
[2021-10-17] MEDS: ASPIRIN 325 MG TAB PO SCH (21:24)
[2021-10-18 06:00] LABS: Basophils % (A) 0 %; Eosinophils % (A) 0 %; HCT 42.1 % (34.0-46.0); Lymphocytes # (A) 0.9 k/uL (1.0-4.8); Lymphocytes % (A) 6 %; MCH 29.4 pg (25.0-35.0); MCHC 31.6 g/dL (31.0-37.0); MCV 92.8 fL (80.0-100.0); Mean Platelet Volume 7.6; Monocytes # (A) 0.5 k/uL (0-1.0); Monocytes % (A) 3 %; Neutrophils % (A) 90 %; Platelet Count 214 k/uL (150-450); RBC 4.53 m/uL (3.80-5.40); RDW 13.8 % (11.5-15.5); WBC 14.4 k/uL (3.8-10.6)
[2021-10-18 06:05] LABS: HGB 13.3 gm/dL (11.4-16.0)
[2021-10-18 06:31] VITALS: RESP 16
[2021-10-18 07:17] LABS: Glucose,Whole Blood 157 mg/dL (75-99)
--- NOTE | 2021-10-18 08:17 | P.DS ---
Providers Expected date of discharge: 10/18/21 Attending physician: Cristopher Pacheco Consults: 10/17/21 09:00 Consult Physician Routine Consulting Provider: John Kang Consult Reason/Comments: medical management Do you want consulting provider notified?: Yes Primary care physician: Immanuel Chan - Discharge Diagnosis(es) (1) Primary localized osteoarthritis of right hip Current Visit: Yes Status: Acute (2) Status post total hip replacement, right Current Visit: Yes Status: Acute Hospital Course: This is a 80-year-old female with known history of degenerative arthritis of the right hip. The patient presents for evaluation. After discussion and consideration patient elects to proceed with total hip arthroplasty with direct anterior approach. The patient is seen preoperatively by primary care physician and cleared for surgery. Patient is admitted to [facility] on 10/17/2021 for total hip arthroplasty with direct anterior approach. The procedure is performed without complication or sequelae. The patient is doing well postoperatively. Labs and vital signs are stable on day of discharge. On day of discharge patient's hip incision is healing well. There is minimal erythema. There is no drainage noted at this time. There is minimal soft tissue swelling to the hip and thigh. Patient has full foot and ankle motion without difficulty or pain. Neurovascular status to the lower extremity is intact. Patient is discharged to home in good condition. Please see med rec for accurate list of home medications. Patient Condition at Discharge: Good Plan - Discharge Summary Discharge Rx Participant: Yes New Discharge Prescriptions: New Sennosides [Senokot] 2 tab PO DAILY PRN #60 tablet PRN Reason: Constipation Aspirin 325 mg PO BID #60 tab HYDROcodone/APAP 7.5-325MG [[place] 7.5-325] 1 - 2 tab PO Q6H PRN #32 tab PRN Reason: Pain Ondansetron Odt [Zofran Odt] 1 tab PO Q8HR PRN #10 tab PRN Reason: Nausea No Action glipiZIDE [Glucotrol] 2.5 mg PO AC-BRKFST Bisoprolol-Hctz 5-6.25 mg [Ziac 5-6.25 MG] 1 tab PO QAM Simvastatin 20 mg PO DAILY Multivit-Min/Iron/Folic/Lutein [Centrum Silver Women Tablet] 1 each PO DAILY Losartan Potassium 50 mg PO QAM Aspirin [Adult Low Dose Aspirin EC] 81 mg PO DAILY amLODIPine [Norvasc] 10 mg PO HS Discharge Medication List Aspirin [Adult Low Dose Aspirin EC] 81 mg PO DAILY 08/21/19 [History] Bisoprolol-Hctz 5-6.25 mg [Ziac 5-6.25 MG] 1 tab PO QAM 08/21/19 [History] Losartan Potassium 50 mg PO QAM 08/21/19 [History] Multivit-Min/Iron/Folic/Lutein [Centrum Silver Women Tablet] 1 each PO DAILY 08/21/19 [History] Simvastatin 20 mg PO DAILY 08/21/19 [History] glipiZIDE [Glucotrol] 2.5 mg PO AC-BRKFST 08/21/19 [History] amLODIPine [Norvasc] 10 mg PO HS 10/13/21 [History] Aspirin 325 mg PO BID #60 tab 10/17/21 [Rx] HYDROcodone/APAP 7.5-325MG [[place] 7.5-325] 1 - 2 tab PO Q6H PRN #32 tab 10/17/21 [Rx] Ondansetron Odt [Zofran Odt] 1 tab PO Q8HR PRN #10 tab 10/17/21 [Rx] Sennosides [Senokot] 2 tab PO DAILY PRN #60 tablet 10/17/21 [Rx] Follow up Appointment(s)/Referral(s): Cristopher Pacheco DO [Doctor of Osteopathic Medicine] - 2 Weeks Activity/Diet/Wound Care/Special Instructions: Weightbearing as tolerated with walker. Leave dressing intact. Dressing may be removed by home care nurse or by patient in 7 days. Then change dressing twice daily until follow up. May shower with initial dressing intact and after removal. If dressing become saturated, please remove. Please take aspirin 325mg twice daily for 30 days to prevent blood clots. Recommend use of compression stockings daily until follow up to help prevent s welling and blood clots. May remove at night before sleeping. Please follow-up with [facility] in 2 weeks and call with any questions or concerns, . Discharge Disposition: HOME WITH HOME HEALTH SERVICES
[2021-10-18] MEDS: ASPIRIN 325 MG TAB PO SCH (08:33)
[2021-10-18] MEDS ORDERED: MELOXICAM 7.5 MG TAB PO SCH (09:00)
[2021-10-18] MEDS ORDERED: ATORVASTATIN 10 MG TAB PO SCH (10:45)
[2021-10-18] MEDS ORDERED: BISOPROLOL-HCTZ 5-6.25 MG 1 EACH TAB PO SCH (10:45)
[2021-10-18 13:02] VITALS: BP 142/83; PULSE 89; TEMP 97.4
[2021-10-18] MEDS: HYDROcodone/APAP 7.5-325MG 1 EACH TAB PO PRN (13:07)
--- NOTE | 2021-10-18 20:13 | P.CONS ---
History of Present Illness - Reason for Consult Consult date: 10/18/21 Medical management Requesting physician: Cristopher Pacheco - Chief Complaint Right hip surgery - History of Present Illness This is a very pleasant 80-year-old patient who follows with Dr. Chan. Chronic stable medical conditions include diabetes, hypertension, hyperlipidemia, osteoarthritis, obstructive sleep apnea uses CPAP, hypothyroid. Patient underwent right total hip arthroplasty. This morning sitting up in a chair. Pain is controlled. Did tolerate her breakfast. No chest pain or shortness of breath. Denies any cardiac history. Comfortable. Review of systems: GEN.: None EYES: None HEENT: None NECK: None RESPIRATORY: None CARDIOVASCULAR: None GASTROINTESTINAL: None GENITOURINARY: None MUSCULOSKELETAL: Joint pains LYMPHATICS: None HEMATOLOGICAL: None PSYCHIATRY: None NEUROLOGICAL: None Past medical history to include: Diabetes mellitus, hypertension, hyperlipidemia, osteoporosis, obstructive sleep apnea, hypothyroid, Social history: . No history of smoking and alcohol Family history: DVT Physical examination: VITAL SIGNS: 98, 65, 16, 11 2 x 67, 95% room air GENERAL: BMI 36.8, sitting up in a chair, awake, comfortable. EYES: Pupils equal. Conjunctiva normal. HEENT: External appearance of nose and ears normal, oral cavity grossly normal. NECK: JVD not raised; masses not palpable. HEART: First and second heart sounds are normal; no edema. LUNGS: Respiratory rate normal; clear to auscultation. ABDOMEN: Soft, nontender, liver spleen not palpable, no masses palpable. PSYCH: Alert and oriented x3; mood and affect normal. MUSCULAR skeletal: Evidence of OA especially in the hands. Dressing over the right hip. NEUROLOGICAL: Cranial nerves grossly intact; no facial asymmetry, power and sensation grossly intact. LYMPHATICS: No lymph nodes palpable in the axilla and neck INVESTIGATIONS, reviewed in the clinical context: White count 14.4 hemoglobin 13.3 platelets 214. Accu-Cheks noted Coronavirus [PCR]: Not detected Hemoglobin 16.7 on October 10 Potassium 4.6, BUN 25, creatinine 1.23 on October 10 Assessment and plan: -Right total hip arthroplasty Pain management. Aspirin for DVT prophylaxis -Diabetes mellitus type 2 Glucotrol 2.5 mg with breakfast -Essential hypertension Bisoprolol/hydrochlorothiazide 5/6.25 one tablet daily. Patient told to hold off for amlodipine until systolic blood pressure raises to above 140. Patient to check her blood pressure daily -Hyperlipidemia Simvastatin 20 mg daily -Primary osteoarthritis into multiple joints including the knee Pain medications as needed -Obesity BMI 36.8 Weight loss measures and follow-up with PCP -Obstructive sleep apnea uses CPAP Home medications resumed. Hold amlodipine. The pressure parameters discussed with the patient. Follow Accu-Cheks. Patient to follow-up with Dr. Chan upon discharge. Care was discussed questions answered Thank you Dr. Pacheco Past Medical History Past Medical History: Diabetes Mellitus, Hyperlipidemia, Hypertension, Osteoarthritis (OA), Sleep Apnea/CPAP/BIPAP, Thyroid Disorder Additional Past Medical History / Comment(s): CPAP use. History of Any Multi-Drug Resistant Organisms: None Reported Past Surgical History: Joint Replacement Additional Past Surgical History / Comment(s): Partial thyroidectomy, right knee replacement. Past Anesthesia/Blood Transfusion Reactions: Postoperative Nausea & Vomiting (PONV) Past Psychological History: No Psychological Hx Reported Smoking Status: Never smoker Past Alcohol Use History: None Reported Past Drug Use History: None Reported - Past Family History Mother Family Medical History: Deep Vein Thrombosis (DVT) Medications and Allergies Home Medications Medication Instructions Recorded Confirmed Type Aspirin [Adult Low Dose Aspirin EC] 81 mg PO DAILY 08/21/19 10/17/21 History Bisoprolol-Hctz 5-6.25 mg [Ziac 1 tab PO QAM 08/21/19 10/17/21 History 5-6.25 MG] Losartan Potassium 50 mg PO QAM 08/21/19 10/17/21 History Multivit-Min/Iron/Folic/Lutein 1 each PO DAILY 08/21/19 10/17/21 History [Centrum Silver Women Tablet] Simvastatin 20 mg PO DAILY 08/21/19 10/17/21 History glipiZIDE [Glucotrol] 2.5 mg PO AC-BRKFST 08/21/19 10/17/21 History amLODIPine [Norvasc] 10 mg PO HS 10/13/21 10/17/21 History Aspirin 325 mg PO BID #60 tab 10/17/21 Rx HYDROcodone/APAP 7.5-325MG [[place] 1 - 2 tab PO Q6H PRN #32 tab 10/17/21 Rx 7.5-325] Ondansetron Odt [Zofran Odt] 1 tab PO Q8HR PRN #10 tab 10/17/21 Rx Sennosides [Senokot] 2 tab PO DAILY PRN #60 tablet 10/17/21 Rx Allergies Allergy/AdvReac Type Severity Reaction Status Date / Time nickel Allergy Rash/Hives/ Verified 10/17/21 13:04 itching Physical Exam Vitals: Vital Signs Temp Pulse Resp BP Pulse Ox 10/18/21 13:00 97.4 F L 89 16 142/83 93 L 10/18/21 08:00 65 16 10/18/21 05:00 98 F 65 16 112/67 95 10/17/21 22:07 97.7 F 69 18 114/65 95 Intake and Output 10/18/21 10/18/21 10/18/21 06:59 14:59 22:59 Intake Total 540 Balance 540 Intake: Oral 540 Other: Voiding Method Toilet # Voids 2 2 Results CBC & Chem 7: 10/18/21 05:24 Labs: Abnormal Lab Results - Last 24 Hours (Table) 10/17/21 10/18/21 10/18/21 Range/Units 21:04 05:24 07:14 WBC 14.4 H (3.8-10.6) k/uL Neutrophils # 13.0 H (1.3-7.7) k/uL Lymphocytes # 0.9 L (1.0-4.8) k/uL POC Glucose (mg/dL) 270 H 157 H (75-99) mg/dL
[2021-10-19] MEDS ORDERED: LOSARTAN 50 MG TAB PO SCH (09:00)
== END 2021-10-18 13:38 | disposition home or self-care (01) ==
LOC: OR 12:21 → 5NMEDONC 15:21 → OR 10-18 13:38
PROVIDERS: ATTEND Orthopaedic Surgery
DX: M16.11 Unilateral primary osteoarthritis, right hip (principal); E11.9 Type 2 diabetes mellitus without complications; I10 Essential (primary) hypertension; E78.5 Hyperlipidemia, unspecified; Z79.84 Long term (current) use of oral hypoglycemic drugs; Z79.82 Long term (current) use of aspirin; Z79.899 Other long term (current) drug therapy; G47.30 Sleep apnea, unspecified
CPT/HCPCS: 97162; 97166; 86891; 85025; 88300; 87635; 73501; 27130; C1776; J2250; J1200; J1644; J1100; J0690 ×3; J2405; J2001; J2795; J2704; 86850; 86900; 86901